=== PATIENT | female | born 1965 | race American Indian/Alaskan Native ===

== ENCOUNTER 2017-04-18 19:58 | Emergency (ER) | payer OTHER ==
[2017-04-18 20:09] VITALS: BMI 35.5
[2017-04-18 20:12] VITALS: BP 128/79; PULSE 90; RESP 18; TEMP 98; O2SAT 96
--- NOTE | 2017-04-18 21:05 | ED PDOC ---
Arrival/HPI - General Chief Complaint: Suture/Staple Removal Time Seen by Provider: 04/18/17 20:18 Historian: Patient - History of Present Illness Narrative History of Present Illness (Text): 04/18/17 21:11 A 51 year old female presents to the emergency department for suture removal. Patient reports stitches didn't dissolve. Patient has horseshoe shaped stitches to forehead and middle of nose, well healed. Patient denies any other complaints at this time. Symptom Onset: Sudden Symptom Course: Unchanged Activities at Onset: Rest Context: Home Associated Symptoms (Text): none Past Medical History - Provider Review Nursing Documentation Reviewed: Yes - Infectious Disease Hx of Infectious Diseases: None - Psychiatric Hx Substance Use: No - Anesthesia Hx Anesthesia: No Family/Social History - Physician Review Nursing Documentation Reviewed: Yes Family/Social History: No Known Family HX Smoking Status: Never Smoked Hx Alcohol Use: No Hx Substance Use: No Allergies/Home Meds Allergies/Adverse Reactions: Allergies No Known Allergies Allergy (Verified 04/18/17 20:09) Home Medications: Home Meds Medication Instructions Recorded Confirmed No Known Home Med 04/18/17 04/18/17 Review of Systems - Physician Review All systems were reviewed & negative as marked: Yes - Review of Systems Constitutional: absent: Fevers Respiratory: absent: SOB Physical Exam Vital Signs Reviewed: Yes Vital Signs Temp Pulse Resp BP Pulse Ox 04/18/17 20:11 98.0 F 90 18 128/79 96 Temperature: Afebrile Blood Pressure: Normal Pulse: Regular Respiratory Rate: Normal Appearance: Positive for: Well-Appearing, Non-Toxic, Comfortable Pain Distress: None Mental Status: Positive for: Alert and Oriented X 3 - Systems Exam Head: Present: Normocephalic, Other (horseshoe shaped stitches to forehead) Pupils: Present: PERRL Extroacular Muscles: Present: EOMI Conjunctiva: Present: Normal Mouth: Present: Moist Mucous Membranes Nose (External): Present: Other (horseshoe shaped stitches to nose) Neck: Present: Normal Range of Motion Respiratory/Chest: Present: Clear to Auscultation, Good Air Exchange. No: Respiratory Distress, Accessory Muscle Use Cardiovascular: Present: Regular Rate and Rhythm, Normal S1, S2. No: Murmurs Abdomen: Present: Normal Bowel Sounds. No: Tenderness, Distention, Peritoneal Signs Back: Present: Normal Inspection Upper Extremity: Present: Normal Inspection. No: Cyanosis, Edema Lower Extremity: Present: Normal Inspection. No: Edema Neurological: Present: GCS=15, CN II-XII Intact, Speech Normal Skin: Present: Warm, Dry, Normal Color. No: Rashes Psychiatric: Present: Alert, Oriented x 3, Normal Insight, Normal Concentration Medical Decision Making ED Course and Treatment: 04/18/17 21:09 Impression: A 51 year old female with suture removal, stitches to forehead and nose. Plan: -- Reassess and disposition Progress Notes: PROCEDURE: SUTURE REMOVAL Performed by the emergency provider Location: forehead and middle of nose Distal CMS: Normal. No deficits. Neurovascularly intact. Preparation: The wound was cleaned with NS and [place]. The area was prepped and draped in the usual sterile fashion. Procedure: In total, 17 sutures were removed. Post-Procedure: Good closure and hemostasis. The patient tolerated the procedure well and there were no complications. CSM remains intact. Removed about 17 stitches, advised patient to cover the rest with Neosporin and band aid. On re-evaluation, patient feels better and is in no acute distress. I have discussed the results and plan with the patient, who expresses understanding. Patient in agreement with plan to be discharged home. Patient is stable for discharge. Patient was instructed to follow up with physician or return if symptoms worsen or new concerning symptoms arise. - PA / PROGRAM AND RESEARCH COORDINATOR / Resident Statement MD/DO has reviewed & agrees with the documentation as recorded. - Scribe Statement The provider has reviewed the documentation as recorded by the Saira Matute Provider Scribe Attestation: All medical record entries made by the Saira were at my direction and personally dictated by me. I have reviewed the chart and agree that the record accurately reflects my personal performance of the history, physical exam, medical decision making, and the department course for this patient. I have also personally directed, reviewed, and agree with the discharge instructions and disposition. Disposition/Present on Arrival - Present on Arrival Any Indicators Present on Arrival: No History of DVT/PE: No History of Uncontrolled Diabetes: No Urinary Catheter: No History of Decub. Ulcer: No History Surgical Site Infection Following: None - Disposition Have Diagnosis and Disposition been Completed?: Yes Diagnosis: Visit for suture removal Disposition: HOME/ ROUTINE Disposition Time: 21:06 Patient Plan: Discharge Patient Problems: Current Active Problems Problem Status Onset Visit for suture removal Acute Condition: GOOD Discharge Instructions (ExitCare): Stitches Removal Additional Instructions: Ms Morgan- It was nice meeting you. Keep the scabs covered with antibiotic ointment and a gauze under your hard hat. Return to us if any problems at all Best- Dr. Kristopher Kan Referrals: [facility] Profile Req, [Primary Care Provider] - Follow up with primary Forms: [employer] ([place])
== END 2017-04-18 21:26 | disposition home or self-care (01) ==
LOC: ED 19:58
DX: Z48.02 Encounter for removal of sutures (principal)